=== PATIENT | male | born 1990 | race African-American/Black ===

== ENCOUNTER 2023-04-21 12:29 | Inpatient (IN) | payer MEDICAID ==
[~2023-04-21] VITALS: Ht 180.3 cm; Wt 96.3 kg
[2023-04-21] MEDS ORDERED: OLANZapine 5 MG RAPDIS TABLET PO PRN (13:30)
[2023-04-21] MEDS ORDERED: ZOLPIDEM TARTRATE 10 MG TABLET PO PRN (13:30)
[2023-04-21] MEDS ORDERED: DiphenhydrAMINE HCL 50 MG/ML VIAL IM ONE (15:45)
[2023-04-21] MEDS ORDERED: LORazepam 2 MG/ML VIAL IM ONE (15:45)
[2023-04-21] MEDS ORDERED: HALOPERIDOL LACTATE 5 MG/ML VIAL IM ONE (15:45)
[2023-04-21 16:24] LABS: EOSINOPHILS % (AUTO) 0.3 % (1.0-6.0); HEMATOCRIT 43.4 % (41-53); HEMOGLOBIN 15.1 g/dL (13.5-17.5); LYMPHOCYTES # (AUTO) 1.7 K/uL (1.0-4.8); LYMPHOCYTES % (AUTO) 24.6 % (22.0-44.0); MEAN CORPUSCULAR HEMOGLOBIN 28.8 pg (26.0-34.0); MEAN CORPUSCULAR HGB CONC 34.8 G/dL (31.0-37.0); MEAN CORPUSCULAR VOLUME 83 fL (80-100); MONOCYTES # (AUTO) 0.5 K/uL (0.1-1.0); MONOCYTES % (AUTO) 6.6 % (2.0-9.0); NEUTROPHILS # (AUTO) 4.8 K/uL (1.8-7.7); NEUTROPHILS % (AUTO) 67.5 % (40.0-70.0); PLATELET COUNT (AUTO) 251 K/uL (150-450); RED BLOOD CELL COUNT(AUTO) 5.23 MIL/uL (4.50-5.90); RED CELL DISTRIBUTION WIDTH 12.8 % (11.5-14.5)
[2023-04-21 16:35] LABS: ANION GAP 13 mmol/L (8-16); CALCIUM, TOTAL 9.1 mg/dL (8.8-10.5); CARBON DIOXIDE 26 mmol/L (22-29); CHLORIDE 100 mmol/L (98-107); CREATININE 1.02 mg/dL (0.60-1.30); GLOMERULAR FILTR. RATE CALC > 60 mL/min (>60); GLUCOSE,RANDOM 99 mg/dL (70-110); SODIUM SERUM 139 mmol/L (136-145)
[2023-04-21 16:40] LABS: ALANINE AMINOTRANSFERASE 26 U/L (12-78); ALBUMIN 3.9 g/dL (3.4-5.0); ALKALINE PHOSPHATASE 82 U/L (46-116); ASPARTATE AMINOTRANSFERASE 15 U/L (15-37); BILIRUBIN,TOTAL 0.9 mg/dL (0.1-1.0); TOTAL PROTEIN, SERUM 7.8 g/dL (6.4-8.2)
[2023-04-21 17:03] LABS: COVID AG,FIA SOURCE NASOPHARYNGEAL
[2023-04-21] MEDS ORDERED: POTASSIUM CHLORIDE 10% 40 MEQ/30 ML LIQUID UDCUP PO ONE (17:45)
[2023-04-21] MEDS ORDERED: MAGNESIUM HYDROXIDE SUSPENSION 30 ML UDCUP PO PRN (21:00)
[2023-04-21] MEDS ORDERED: HydrOXYzine PAMOATE 50 MG CAPSULE PO PRN (21:00)
[2023-04-21] MEDS ORDERED: MAG HYDROX/AL HYDROX/SIMETH ES 30 ML SUSPENSION UDCUP PO PRN (21:00)
[2023-04-21] MEDS ORDERED: LOPERAMIDE HCL 2 MG CAPSULE PO PRN (21:00)
[2023-04-21] MEDS ORDERED: GuaiFENesin/D-METHORPHAN [SUGAR-FREE] 200-20MG/10 ML SYRUP UDCUP PO PRN (21:00)
[2023-04-21] MEDS ORDERED: ACETAMINOPHEN 325 MG TABLET PO PRN (21:00)
[2023-04-21] MEDS ORDERED: OLANZapine 5 MG RAPDIS TABLET PO SCH (21:00)
[2023-04-21] MEDS ORDERED: PROMETHAZINE HCL 25 MG TABLET PO PRN (21:00)
[2023-04-21] MEDS ORDERED: TUBERCULIN, PURIFIED PROTEIN DERIVATIVE 5 TU/0.1 ML SYRINGE ID ONE (21:00)
[2023-04-21 22:15] VITALS: BP 109/70; PULSE 104; RESP 18; TEMP 98.1; O2SAT 96
[2023-04-21] MEDS: MELATONIN 5 MG TABLET PO SCH (22:27)
[2023-04-22 08:14] VITALS: RESP 17
[2023-04-22] MEDS: NALTREXONE HCL 50 MG TABLET PO SCH (08:15)
[2023-04-22] MEDS: OMEGA-3/DHA/EPA/FISH OIL 1,000 MG CAPSULE PO SCH (08:15)
[2023-04-22] MEDS: VARENICLINE TARTRATE 0.5 MG TABLET PO SCH (08:15)
[2023-04-22] MEDS: MULTIVITAMINS WITH MINERALS, THERAPEUTIC TABLET PO SCH (08:15)
[2023-04-22] MEDS: FLUoxetine HCL 20 MG CAPSULE PO SCH (08:15)
[2023-04-22] MEDS: THIAMINE 100 MG TABLET PO SCH ×2 (08:15→16:19)
[2023-04-22] MEDS: FOLIC ACID 1 MG TABLET PO SCH (08:15)
[2023-04-22] MEDS ORDERED: ARIPiprazole ER SUSPENSION 400 MG PRE-FILLED DUAL CHAMBER SYRINGE IM ONE (08:45)
[2023-04-22] MEDS ORDERED: ARIPiprazole ER SUSPENSION 400 MG PRE-FILLED DUAL CHAMBER SYRINGE IM SCH (09:00)
[2023-04-22] MEDS ORDERED: POTASSIUM CHLORIDE 20 MEQ ER TABLET PO ONE (11:15)
[2023-04-22] MEDS: MELATONIN 5 MG TABLET PO SCH (20:16)
[2023-04-22] MEDS: ARIPiprazole 15 MG TABLET PO SCH (20:16)
[2023-04-22 20:17] VITALS: BP 110/62; PULSE 100; RESP 18; TEMP 98; O2SAT 97
[2023-04-22] MEDS ORDERED: POTASSIUM CHLORIDE 10% 40 MEQ/30 ML LIQUID UDCUP PO ONE (21:00)
[2023-04-23 08:05] LABS: ANION GAP 6 mmol/L (8-16); CALCIUM, TOTAL 8.7 mg/dL (8.8-10.5); CARBON DIOXIDE 30 mmol/L (22-29); CHLORIDE 105 mmol/L (98-107); CREATININE 0.94 mg/dL (0.60-1.30); GLOMERULAR FILTR. RATE CALC > 60 mL/min (>60); GLUCOSE,RANDOM 87 mg/dL (70-110); POTASSIUM 3.9 mmol/L (3.5-5.1); SODIUM SERUM 141 mmol/L (136-145)
[2023-04-23] MEDS: FOLIC ACID 1 MG TABLET PO SCH (08:08)
[2023-04-23] MEDS: NALTREXONE HCL 50 MG TABLET PO SCH (08:08)
[2023-04-23] MEDS: OMEGA-3/DHA/EPA/FISH OIL 1,000 MG CAPSULE PO SCH (08:08)
[2023-04-23] MEDS: FLUoxetine HCL 20 MG CAPSULE PO SCH (08:08)
[2023-04-23] MEDS: THIAMINE 100 MG TABLET PO SCH ×2 (08:08→16:16)
[2023-04-23] MEDS: MULTIVITAMINS WITH MINERALS, THERAPEUTIC TABLET PO SCH (08:08)
[2023-04-23] MEDS: VARENICLINE TARTRATE 0.5 MG TABLET PO SCH (08:10)
[2023-04-23 08:11] VITALS: BP 120/63; PULSE 78; RESP 18; TEMP 97.2; O2SAT 98
[2023-04-23] MEDS: ARIPiprazole 15 MG TABLET PO SCH (20:08)
[2023-04-23] MEDS: MELATONIN 5 MG TABLET PO SCH (20:08)
[2023-04-23] MEDS: DIVALPROEX SODIUM 500 MG ER TABLET PO SCH (20:11)
[2023-04-23 20:12] VITALS: BP 136/79; PULSE 90; RESP 18; TEMP 98.2; O2SAT 98
[2023-04-24] MEDS: MULTIVITAMINS WITH MINERALS, THERAPEUTIC TABLET PO SCH (08:09)
[2023-04-24] MEDS: VARENICLINE TARTRATE 0.5 MG TABLET PO SCH (08:09)
[2023-04-24] MEDS: FOLIC ACID 1 MG TABLET PO SCH (08:09)
[2023-04-24] MEDS: NALTREXONE HCL 50 MG TABLET PO SCH (08:09)
[2023-04-24] MEDS: OMEGA-3/DHA/EPA/FISH OIL 1,000 MG CAPSULE PO SCH (08:09)
[2023-04-24] MEDS: THIAMINE 100 MG TABLET PO SCH ×2 (08:09→17:21)
[2023-04-24 08:22] VITALS: BP 106/82; PULSE 83; RESP 16; TEMP 98.1; O2SAT 99
[2023-04-24] MEDS: FLUoxetine HCL 20 MG CAPSULE PO SCH (09:14)
[2023-04-24] MEDS: MUPIROCIN CALCIUM 2% 22 GM OINTMENT NASAL SCH (17:22)
[2023-04-24 20:23] VITALS: BP 125/77; PULSE 92; RESP 18; TEMP 98.2; O2SAT 97
[2023-04-24] MEDS: DIVALPROEX SODIUM 500 MG ER TABLET PO SCH (20:36)
[2023-04-24] MEDS: MELATONIN 5 MG TABLET PO SCH (20:36)
[2023-04-24] MEDS: ARIPiprazole 15 MG TABLET PO SCH (20:36)
[2023-04-25] MEDS: FOLIC ACID 1 MG TABLET PO SCH (08:21)
[2023-04-25] MEDS: FLUoxetine HCL 20 MG CAPSULE PO SCH (08:21)
[2023-04-25] MEDS: NALTREXONE HCL 50 MG TABLET PO SCH (08:21)
[2023-04-25] MEDS: MULTIVITAMINS WITH MINERALS, THERAPEUTIC TABLET PO SCH (08:21)
[2023-04-25] MEDS: OMEGA-3/DHA/EPA/FISH OIL 1,000 MG CAPSULE PO SCH (08:21)
[2023-04-25] MEDS: VARENICLINE TARTRATE 0.5 MG TABLET PO SCH (08:21)
[2023-04-25] MEDS: THIAMINE 100 MG TABLET PO SCH ×2 (08:21→16:44)
[2023-04-25] MEDS: MUPIROCIN CALCIUM 2% 22 GM OINTMENT NASAL SCH ×2 (08:23→16:45)
[2023-04-25 08:26] VITALS: BP 125/73; PULSE 91; RESP 18; TEMP 97.1; O2SAT 97
[2023-04-25] MEDS: DIVALPROEX SODIUM 500 MG ER TABLET PO SCH (20:12)
[2023-04-25] MEDS: MELATONIN 5 MG TABLET PO SCH (20:12)
[2023-04-25] MEDS: ARIPiprazole 15 MG TABLET PO SCH (20:12)
[2023-04-25 20:37] VITALS: BP 121/71; PULSE 73; RESP 17; TEMP 97.9; O2SAT 94
[2023-04-26] MEDS: FOLIC ACID 1 MG TABLET PO SCH (08:14)
[2023-04-26] MEDS: OMEGA-3/DHA/EPA/FISH OIL 1,000 MG CAPSULE PO SCH (08:14)
[2023-04-26] MEDS: THIAMINE 100 MG TABLET PO SCH ×2 (08:15→16:22)
[2023-04-26] MEDS: NALTREXONE HCL 50 MG TABLET PO SCH (08:15)
[2023-04-26] MEDS: FLUoxetine HCL 20 MG CAPSULE PO SCH (08:15)
[2023-04-26] MEDS: MULTIVITAMINS WITH MINERALS, THERAPEUTIC TABLET PO SCH (08:15)
[2023-04-26] MEDS: MUPIROCIN CALCIUM 2% 22 GM OINTMENT NASAL SCH ×2 (08:16→16:37)
[2023-04-26] MEDS: VARENICLINE TARTRATE 0.5 MG TABLET PO SCH (08:16)
[2023-04-26 08:41] VITALS: BP 117/72; PULSE 88; RESP 20; TEMP 97.8; O2SAT 99
[2023-04-26] MEDS ORDERED: VARE0.5T7 PO (11:14)
[2023-04-26] MEDS ORDERED: ARIP15TA2 PO (11:15)
[2023-04-26] MEDS ORDERED: FLUO-177 PO (11:15)
[2023-04-26] MEDS ORDERED: DIVA500T53 PO (11:15)
[2023-04-26] MEDS ORDERED: NALT50TA6 PO (11:15)
[2023-04-26 20:14] VITALS: BP 140/63; PULSE 75; RESP 18; TEMP 98; O2SAT 98
[2023-04-26] MEDS: MELATONIN 5 MG TABLET PO SCH (20:54)
[2023-04-26] MEDS: ARIPiprazole 15 MG TABLET PO SCH (20:54)
[2023-04-26] MEDS: DIVALPROEX SODIUM 500 MG ER TABLET PO SCH (20:54)
[2023-04-27] MEDS: NALTREXONE HCL 50 MG TABLET PO SCH (08:10)
[2023-04-27] MEDS: FOLIC ACID 1 MG TABLET PO SCH (08:10)
[2023-04-27] MEDS: OMEGA-3/DHA/EPA/FISH OIL 1,000 MG CAPSULE PO SCH (08:10)
[2023-04-27] MEDS: VARENICLINE TARTRATE 0.5 MG TABLET PO SCH (08:10)
[2023-04-27] MEDS: MULTIVITAMINS WITH MINERALS, THERAPEUTIC TABLET PO SCH (08:10)
[2023-04-27] MEDS: THIAMINE 100 MG TABLET PO SCH ×2 (08:10→16:57)
[2023-04-27] MEDS: MUPIROCIN CALCIUM 2% 22 GM OINTMENT NASAL SCH ×2 (08:11→16:57)
[2023-04-27 08:13] VITALS: BP 130/60; PULSE 82; RESP 18; TEMP 97; O2SAT 96
[2023-04-27] MEDS: FLUoxetine HCL 20 MG CAPSULE PO SCH (08:13)
[2023-04-27] MEDS: LORazepam 2 MG TABLET PO PRN ×2 (13:18→20:02)
[2023-04-27] MEDS ORDERED: NICOTINE 21 MG/24 HOUR PATCH TD PRN (18:30)
[2023-04-27] MEDS: ARIPiprazole 15 MG TABLET PO SCH (20:02)
[2023-04-27] MEDS: DIVALPROEX SODIUM 500 MG ER TABLET PO SCH (20:02)
[2023-04-27] MEDS: MELATONIN 5 MG TABLET PO SCH (20:02)
[2023-04-27 20:03] VITALS: BP 102/60; PULSE 88; RESP 18; TEMP 97.5; O2SAT 97
[2023-04-28] MEDS: FOLIC ACID 1 MG TABLET PO SCH (08:19)
[2023-04-28] MEDS: MULTIVITAMINS WITH MINERALS, THERAPEUTIC TABLET PO SCH (08:19)
[2023-04-28] MEDS: OMEGA-3/DHA/EPA/FISH OIL 1,000 MG CAPSULE PO SCH (08:19)
[2023-04-28] MEDS: MUPIROCIN CALCIUM 2% 22 GM OINTMENT NASAL SCH (08:19)
[2023-04-28] MEDS: VARENICLINE TARTRATE 0.5 MG TABLET PO SCH (08:19)
[2023-04-28] MEDS: FLUoxetine HCL 20 MG CAPSULE PO SCH (08:19)
[2023-04-28] MEDS: THIAMINE 100 MG TABLET PO SCH (08:19)
[2023-04-28] MEDS: NALTREXONE HCL 50 MG TABLET PO SCH (08:23)
[2023-04-28] MEDS ORDERED: FLUO20CA36 PO (08:24)
[2023-04-28] MEDS ORDERED: MELA5TAB40 PO (08:24)
[2023-04-28] MEDS ORDERED: OMEG-135 PO (08:24)
[2023-04-28] MEDS ORDERED: ARIP15TA27 PO (08:24)
[2023-04-28] MEDS ORDERED: NALT50TA PO (08:24)
[2023-04-28] MEDS ORDERED: VARE0.5T7 PO (08:24)
[2023-04-28] MEDS ORDERED: ARIP400S3 IM (08:24)
[2023-04-28] MEDS ORDERED: DIVA500T69 PO (08:24)
[2023-04-28 09:17] VITALS: BP 136/80; PULSE 125; RESP 18; TEMP 97.9; O2SAT 97
[2023-05-20] MEDS ORDERED: ARIPiprazole ER SUSPENSION 400 MG PRE-FILLED DUAL CHAMBER SYRINGE IM SCH (09:00)
== END 2023-04-28 10:00 | disposition home or self-care (01) | DRG 750 ==
LOC: EMS 12:32 → B3A 18:55 → B2S 04-27 14:37
PROVIDERS: ADMIT Psychiatry & Neurology Psychiatry; ATTEND Psychiatry & Neurology Psychiatry
DX: F20.0 Paranoid schizophrenia (principal); Z91.148 Patient's other noncompliance with medication regimen for other reason; E87.6 Hypokalemia; Z20.822 Contact with and (suspected) exposure to COVID-19; F19.10 Other psychoactive substance abuse, uncomplicated; F17.200 Nicotine dependence, unspecified, uncomplicated; J44.9 Chronic obstructive pulmonary disease, unspecified; F41.9 Anxiety disorder, unspecified
CPT/HCPCS: 80048; 80053; 85025; 87081; 99285; G0480; J0401; J1200; J1630; J2060; Q9967

== ENCOUNTER 2023-04-29 03:15 | Emergency (ER) | payer MEDICAID ==
[~2023-04-29] VITALS: Ht 180.3 cm; Wt 98.6 kg
[~2023-04-29 03:15] MED LIST: ARIP15TA2 PO; ARIP15TA27 PO; ARIP400S3 IM; DIVA500T53 PO; DIVA500T69 PO; FLUO-177 PO; FLUO20CA36 PO; MELA5TAB40 PO; NALT50TA PO; NALT50TA6 PO; OMEG-135 PO; VARE0.5T7 PO
[2023-04-29 03:22] VITALS: TEMP 98.3
[2023-04-29] MEDS ORDERED: LORazepam 1 MG TABLET PO ONE (05:30)
[2023-04-29] MEDS ORDERED: ARIPiprazole 15 MG TABLET PO ONE (05:30)
[2023-04-29 06:23] VITALS: BP 137/87; PULSE 98; RESP 19
== END 2023-04-29 06:32 | disposition home or self-care (01) ==
LOC: EMS 03:16
DX: F41.9 Anxiety disorder, unspecified (principal); F31.9 Bipolar disorder, unspecified; F20.9 Schizophrenia, unspecified; F90.9 Attention-deficit hyperactivity disorder, unspecified type; F17.210 Nicotine dependence, cigarettes, uncomplicated; F15.90 Other stimulant use, unspecified, uncomplicated; F12.90 Cannabis use, unspecified, uncomplicated; F14.90 Cocaine use, unspecified, uncomplicated; F11.90 Opioid use, unspecified, uncomplicated
CPT/HCPCS: 99283

== ENCOUNTER 2023-11-16 17:46 | Emergency (ER) | payer MEDICAID, OTHER ==
[~2023-11-16] VITALS: Ht 177.8 cm; Wt 100.0 kg
[~2023-11-16 17:46] MED LIST changes: +NALT50TA33 PO; -NALT50TA6 PO
[2023-11-16 17:54] VITALS: TEMP 99.3
[2023-11-16] MEDS: ACETAMINOPHEN 500 MG TABLET PO ONE (18:27)
[2023-11-16] MEDS: DIPHENOXYLATE/ATROP 2.5-0.025 MG TABLET PO ONE (18:28)
[2023-11-16 18:40] LABS: BASOPHILS % (AUTO) 0.9 % (0.0-2.0); EOSINOPHILS % (AUTO) 1.8 % (1.0-6.0); HEMATOCRIT 43.3 % (41-53); HEMOGLOBIN 14.9 g/dL (13.5-17.5); LYMPHOCYTES # (AUTO) 1.6 K/uL (1.0-4.8); LYMPHOCYTES % (AUTO) 27.4 % (22.0-44.0); MEAN CORPUSCULAR HEMOGLOBIN 28.7 pg (26.0-34.0); MEAN CORPUSCULAR HGB CONC 34.4 G/dL (31.0-37.0); MEAN CORPUSCULAR VOLUME 83 fL (80-100); MONOCYTES # (AUTO) 0.5 K/uL (0.1-1.0); MONOCYTES % (AUTO) 9.2 % (2.0-9.0); NEUTROPHILS # (AUTO) 3.6 K/uL (1.8-7.7); NEUTROPHILS % (AUTO) 60.7 % (40.0-70.0); PLATELET COUNT (AUTO) 227 K/uL (150-450); RED BLOOD CELL COUNT(AUTO) 5.19 MIL/uL (4.50-5.90); RED CELL DISTRIBUTION WIDTH 12.7 % (11.5-14.5)
[2023-11-16 18:50] LABS: ANION GAP 9 mmol/L (8-16); CALCIUM, TOTAL 9.4 mg/dL (8.8-10.5); CARBON DIOXIDE 26 mmol/L (22-29); CHLORIDE 101 mmol/L (98-107); CREATININE 1.01 mg/dL (0.60-1.30); GLOMERULAR FILTR. RATE CALC > 60 mL/min (>60); GLUCOSE,RANDOM 85 mg/dL (70-110); POTASSIUM 3.7 mmol/L (3.5-5.1); SODIUM SERUM 136 mmol/L (136-145); UREA NITROGEN, BLOOD 16 mg/dL (7-18)
[2023-11-16 18:54] LABS: ALANINE AMINOTRANSFERASE 41 U/L (12-78); ALBUMIN 3.6 g/dL (3.4-5.0); ALKALINE PHOSPHATASE 76 U/L (46-116); ASPARTATE AMINOTRANSFERASE 13 U/L (15-37); BILIRUBIN,TOTAL 0.5 mg/dL (0.1-1.0); TOTAL PROTEIN, SERUM 7.5 g/dL (6.4-8.2)
[2023-11-16] MEDS ORDERED: DIPH-1130 PO (19:29)
[2023-11-16] MEDS ORDERED: ACET-66 PO (19:29)
[2023-11-16 19:55] VITALS: BP 140/88; PULSE 70; RESP 18
[2023-11-18 08:06] LABS: HIV 1-2 SCREEN 4TH GEN W/RFLX Non Reactive (Non Reactive)
== END 2023-11-16 20:29 | disposition home or self-care (01) ==
LOC: EMS 17:56
DX: K52.9 Noninfective gastroenteritis and colitis, unspecified (principal); F41.9 Anxiety disorder, unspecified; F31.9 Bipolar disorder, unspecified; F20.9 Schizophrenia, unspecified; F17.210 Nicotine dependence, cigarettes, uncomplicated; F12.90 Cannabis use, unspecified, uncomplicated; F14.90 Cocaine use, unspecified, uncomplicated; F15.90 Other stimulant use, unspecified, uncomplicated; F11.90 Opioid use, unspecified, uncomplicated
CPT/HCPCS: 80053; 85025; 87389; 99283

== ENCOUNTER 2023-11-27 11:56 | Inpatient (IN) | payer MEDICAID, OTHER ==
[~2023-11-27] VITALS: Ht 180.3 cm; Wt 103.5 kg
[~2023-11-27 11:56] MED LIST changes: +ACET-66 PO; -ARIP15TA2 PO; +DIPH-1130 PO; -DIVA500T53 PO; -FLUO-177 PO; -NALT50TA33 PO
[2023-11-27 13:06] LABS: BASOPHILS % (AUTO) 0.4 % (0.0-2.0); EOSINOPHILS % (AUTO) 1.8 % (1.0-6.0); HEMATOCRIT 48.9 % (41-53); HEMOGLOBIN 16.8 g/dL (13.5-17.5); LYMPHOCYTES # (AUTO) 1.8 K/uL (1.0-4.8); MEAN CORPUSCULAR HGB CONC 34.4 G/dL (31.0-37.0); MEAN CORPUSCULAR VOLUME 84 fL (80-100); MONOCYTES # (AUTO) 0.7 K/uL (0.1-1.0); MONOCYTES % (AUTO) 10.5 % (2.0-9.0); NEUTROPHILS # (AUTO) 4.1 K/uL (1.8-7.7); NEUTROPHILS % (AUTO) 60.3 % (40.0-70.0); PLATELET COUNT (AUTO) 269 K/uL (150-450); RED BLOOD CELL COUNT(AUTO) 5.81 MIL/uL (4.50-5.90); RED CELL DISTRIBUTION WIDTH 12.9 % (11.5-14.5); WHITE BLOOD COUNT (AUTO) 6.8 K/uL (4.5-11.0)
[2023-11-27 13:18] LABS: ANION GAP 10 mmol/L (8-16); CALCIUM, TOTAL 9.9 mg/dL (8.8-10.5); CARBON DIOXIDE 28 mmol/L (22-29); CHLORIDE 102 mmol/L (98-107); CREATININE 1.47 mg/dL (0.60-1.30); GLOMERULAR FILTR. RATE CALC > 60 mL/min (>60); GLUCOSE,RANDOM 62 mg/dL (70-110); POTASSIUM 3.1 mmol/L (3.5-5.1); SODIUM SERUM 140 mmol/L (136-145); UREA NITROGEN, BLOOD 30 mg/dL (7-18)
[2023-11-27 13:20] LABS: ALCOHOL, BLOOD (SERUM) < 3 mg/dL (0-10)
[2023-11-27 13:20] LABS: COVID AG,FIA SOURCE NASAL SWAB
[2023-11-27 13:27] LABS: ALANINE AMINOTRANSFERASE 28 U/L (12-78); ALBUMIN 3.9 g/dL (3.4-5.0); ALKALINE PHOSPHATASE 80 U/L (46-116); ASPARTATE AMINOTRANSFERASE 12 U/L (15-37); BILIRUBIN,TOTAL 0.9 mg/dL (0.1-1.0); TOTAL PROTEIN, SERUM 8.1 g/dL (6.4-8.2)
[2023-11-27 13:53] LABS: SARS-COV2 (COVID) ANTIGEN,FIA Negative (Negative)
[2023-11-27] MEDS: POTASSIUM CHLORIDE 20 MEQ ER TABLET PO ONE (14:24)
[2023-11-28 04:32] VITALS: BP 108/77; PULSE 100; RESP 18; TEMP 98.5
[2023-11-28 04:41] VITALS: BP 108/77; PULSE 100; RESP 18; TEMP 98.5; O2SAT 100
[2023-11-28 08:48] VITALS: BP 104/60; PULSE 71; RESP 17; TEMP 97.4; O2SAT 97
[2023-11-28] MEDS: FLUoxetine HCL 20 MG CAPSULE PO SCH (09:00)
[2023-11-28] MEDS: NALTREXONE HCL 50 MG TABLET PO SCH (09:00)
[2023-11-28] MEDS: OMEGA-3/DHA/EPA/FISH OIL 1,000 MG CAPSULE PO SCH (09:00)
[2023-11-28] MEDS: VARENICLINE TARTRATE 0.5 MG TABLET PO SCH (09:00)
[2023-11-28] MEDS ORDERED: PETROLATUM,WHITE 28 GM JELLY TP PRN (12:15)
[2023-11-28] MEDS ORDERED: MAG HYDROX/ALUMINUM HYD/SIMETH ES 30 ML SUSPENSION UDCUP PO PRN (12:15)
[2023-11-28] MEDS ORDERED: ACETAMINOPHEN 325 MG TABLET PO PRN (12:15)
[2023-11-28] MEDS ORDERED: DOCUSATE SODIUM 100 MG CAPSULE PO PRN (12:15)
[2023-11-28] MEDS ORDERED: IBUPROFEN 400 MG TABLET PO PRN (12:15)
[2023-11-28] MEDS ORDERED: GuaiFENesin/D-METHORPHAN [SUGAR-FREE] 200-20MG/10 ML SYRUP UDCUP PO PRN (12:15)
[2023-11-28] MEDS ORDERED: ONDANSETRON HCL 4 MG TABLET PO PRN (12:15)
[2023-11-28] MEDS ORDERED: CloNIDine HCL 0.1 MG TABLET PO PRN (12:15)
[2023-11-28] MEDS ORDERED: MAGNESIUM HYDROXIDE SUSPENSION 30 ML UDCUP PO PRN (12:15)
[2023-11-28] MEDS ORDERED: NICOTINE 14 MG/24 HOUR PATCH TD PRN (12:15)
[2023-11-28] MEDS ORDERED: ALBUTEROL SULFATE HFA 90 MCG/PUFF 8 GM INHALER IH PRN (12:15)
[2023-11-28] MEDS ORDERED: LOPERAMIDE HCL 2 MG CAPSULE PO PRN (12:15)
[2023-11-28] MEDS: ARIPiprazole 15 MG TABLET PO SCH (20:44)
[2023-11-28] MEDS: MELATONIN 5 MG TABLET PO SCH (20:45)
[2023-11-28] MEDS: DIVALPROEX SODIUM 500 MG DR TABLET PO SCH (20:45)
[2023-11-29] MEDS: INFLUENZA VIRUS VACCINE QVS 2023-24 (6MO+)/PF 60 MCG/0.5 ML SYRINGE IM. ONE (06:00)
[2023-11-29] MEDS: PNEUMOCOCCAL VACCINE POLYVALENT 0.5 ML SYRINGE [PPSV23] IM. ONE (06:00)
[2023-11-29 08:10] VITALS: BP 126/66; PULSE 107; RESP 18; TEMP 98; O2SAT 98
[2023-11-29] MEDS: HALOPERIDOL 5 MG TABLET PO PRN (08:12)
[2023-11-29] MEDS: LORazepam 2 MG TABLET PO PRN (08:12)
[2023-11-29] MEDS: RisperiDONE 3 MG TABLET PO SCH (16:04)
[2023-11-29 20:03] VITALS: BP 109/72; PULSE 80; RESP 18; TEMP 96.5; O2SAT 100
[2023-11-30 14:11] VITALS: BP 128/86; PULSE 84; RESP 19; TEMP 97.2; O2SAT 99
[2023-11-30 20:17] VITALS: BP 122/65; PULSE 84; RESP 17; TEMP 97.1; O2SAT 97
[2023-12-01 08:18] VITALS: BP 141/71; PULSE 100; RESP 18; TEMP 97.5; O2SAT 98
[2023-12-01 22:06] VITALS: RESP 18
[2023-12-02 20:45] VITALS: BP 117/64; PULSE 80; RESP 18; TEMP 98; O2SAT 98
[2023-12-03 08:18] VITALS: BP 103/64; PULSE 85; RESP 18; TEMP 97.6; O2SAT 98
[2023-12-03] MEDS: MUPIROCIN CALCIUM 2% 22 GM OINTMENT NASAL SCH (09:00)
[2023-12-03 21:16] VITALS: BP 114/65; PULSE 78; RESP 19; TEMP 97.8; O2SAT 97
[2023-12-04 08:10] VITALS: BP 126/63; PULSE 93; RESP 17; TEMP 97.6; O2SAT 97
[2023-12-04] MEDS: ZOLPIDEM TARTRATE 10 MG TABLET PO PRN (20:17)
[2023-12-04 20:20] VITALS: BP 115/61; PULSE 86; TEMP 96.6; O2SAT 97
[2023-12-05 08:54] VITALS: RESP 18
[2023-12-05] MEDS ORDERED: HydrOXYzine PAMOATE 50 MG CAPSULE PO PRN (17:45)
[2023-12-05 20:09] VITALS: BP 115/72; PULSE 92; RESP 15; TEMP 98.3; O2SAT 97
[2023-12-06 08:00] VITALS: BP 117/81; PULSE 85; RESP 16; TEMP 98.5; O2SAT 95
[2023-12-06] MEDS ORDERED: MELA5TAB40 PO (12:18)
[2023-12-06] MEDS ORDERED: NALT50TA33 PO (12:18)
[2023-12-06] MEDS ORDERED: DIVA-112 PO (12:18)
[2023-12-06] MEDS ORDERED: FLUO20CA36 PO (12:18)
[2023-12-06] MEDS ORDERED: NICO-703 TD (12:19)
[2023-12-06] MEDS ORDERED: RISP3TAB35 PO (12:19)
== END 2023-12-06 16:00 | disposition home or self-care (01) | DRG 750 ==
LOC: EMS 11:58 → B3A 11-28 00:30
PROVIDERS: ADMIT Psychiatry & Neurology Psychiatry; ATTEND Psychiatry & Neurology Psychiatry
PROC: GZHZZZZ Group Psychotherapy (ICD-10-PCS; principal; 2023-12-02)
PROC: GZ51ZZZ Individual Psychotherapy, Behavioral (ICD-10-PCS; 2023-12-02)
DX: F25.9 Schizoaffective disorder, unspecified (principal); N17.9 Acute kidney failure, unspecified; E78.5 Hyperlipidemia, unspecified; E87.6 Hypokalemia; F31.9 Bipolar disorder, unspecified; R45.851 Suicidal ideations; F15.90 Other stimulant use, unspecified, uncomplicated; F41.9 Anxiety disorder, unspecified; F12.90 Cannabis use, unspecified, uncomplicated; F11.90 Opioid use, unspecified, uncomplicated; F14.90 Cocaine use, unspecified, uncomplicated; Z20.822 Contact with and (suspected) exposure to COVID-19; Z87.891 Personal history of nicotine dependence; Z91.199 Patient's noncompliance with other medical treatment and regimen due to unspecified reason
CPT/HCPCS: 80053; 80164; 80178; 85025; 87081; 99285; G0480; Q9967

== ENCOUNTER 2024-02-21 18:24 | Emergency (ER) | payer MEDICAID, OTHER ==
[~2024-02-21] VITALS: Ht 180.3 cm; Wt 93.2 kg
[~2024-02-21 18:24] MED LIST changes: -ACET-66 PO; -ARIP15TA27 PO; -ARIP400S3 IM; -DIPH-1130 PO; +DIVA-112 PO; -DIVA500T69 PO; -NALT50TA PO; +NALT50TA33 PO; +NICO-703 TD; -OMEG-135 PO; +RISP3TAB35 PO; -VARE0.5T7 PO
[2024-02-21 18:31] VITALS: TEMP 98
[2024-02-21 19:00] LABS: BASOPHILS % (AUTO) 0.5 % (0.0-2.0); EOSINOPHILS % (AUTO) 0.7 % (1.0-6.0); HEMATOCRIT 41.8 % (41-53); HEMOGLOBIN 14.4 g/dL (13.5-17.5); LYMPHOCYTES # (AUTO) 1.5 K/uL (1.0-4.8); LYMPHOCYTES % (AUTO) 14.8 % (22.0-44.0); MEAN CORPUSCULAR HEMOGLOBIN 29.2 pg (26.0-34.0); MEAN CORPUSCULAR HGB CONC 34.4 G/dL (31.0-37.0); MEAN CORPUSCULAR VOLUME 85 fL (80-100); MONOCYTES # (AUTO) 0.8 K/uL (0.1-1.0); NEUTROPHILS # (AUTO) 7.7 K/uL (1.8-7.7); PLATELET COUNT (AUTO) 185 K/uL (150-450); RED BLOOD CELL COUNT(AUTO) 4.92 MIL/uL (4.50-5.90); RED CELL DISTRIBUTION WIDTH 13.6 % (11.5-14.5); WHITE BLOOD COUNT (AUTO) 10.2 K/uL (4.5-11.0)
[2024-02-21 19:10] LABS: ANION GAP 10 mmol/L (8-16); CALCIUM, TOTAL 8.6 mg/dL (8.8-10.5); CARBON DIOXIDE 28 mmol/L (22-29); CHLORIDE 103 mmol/L (98-107); CREATININE 1.17 mg/dL (0.60-1.30); GLOMERULAR FILTR. RATE CALC > 60 mL/min (>60); GLUCOSE,RANDOM 87 mg/dL (70-110); SODIUM SERUM 141 mmol/L (136-145); UREA NITROGEN, BLOOD 17 mg/dL (7-18)
[2024-02-21 19:14] LABS: ALCOHOL, BLOOD (SERUM) < 3 mg/dL (0-10)
[2024-02-21] MEDS: ARIPiprazole 5 MG TABLET PO ONE (23:27)
[2024-02-21] MEDS: RisperiDONE 3 MG TABLET PO ONE (23:28)
[2024-02-21] MEDS ORDERED: RisperiDONE 1 MG TABLET PO ONE (23:30)
[2024-02-21] MEDS: POTASSIUM CHLORIDE 20 MEQ ER TABLET PO ONE (23:44)
[2024-02-21 23:59] VITALS: BP 148/79; PULSE 109; RESP 18
[2024-02-22 00:01] LABS: ALCOHOL, URINE DRUG SCREEN NEGATIVE (NEGATIVE); AMPHET/METH SCREEN,URINE POSITIVE (NEGATIVE); BARBITURATE SCREEN, URINE NEGATIVE (NEGATIVE); BENZODIAZEPINES SCREEN,URINE NEGATIVE (NEGATIVE); CANNABINOID SCREEN,URINE POSITIVE (NEGATIVE); COCAINE SCREEN,URINE NEGATIVE (NEGATIVE); METHADONE SCREEN, URINE NEGATIVE (NEGATIVE); OPIATE SCREEN,URINE NEGATIVE (NEGATIVE); PHENCYCLIDINE SCREEN,URINE NEGATIVE (NEGATIVE)
[2024-02-22] MEDS ORDERED: SULF-261 PO (02:51)
== END 2024-02-22 00:02 | disposition left against medical advice (07) ==
LOC: EMS 18:29
DX: F20.0 Paranoid schizophrenia (principal); E87.6 Hypokalemia; F32.9 Major depressive disorder, single episode, unspecified; F41.9 Anxiety disorder, unspecified; F17.210 Nicotine dependence, cigarettes, uncomplicated; F15.90 Other stimulant use, unspecified, uncomplicated; F14.90 Cocaine use, unspecified, uncomplicated; F12.90 Cannabis use, unspecified, uncomplicated
CPT/HCPCS: 99284; 80048; 85025; 36415; 80307; G0480; 99283

== ENCOUNTER 2024-02-22 00:34 | Emergency (ER) | payer OTHER ==
[~2024-02-22] VITALS: Ht 175.3 cm; Wt 109.0 kg
[2024-02-22 00:51] VITALS: TEMP 98
[2024-02-22 02:23] LABS: APPEARANCE,URINE CLEAR (CLEAR); BILIRUBIN,URINE NEGATIVE (NEGATIVE); COLOR,URINE YELLOW (YELLOW); GLUCOSE, URINE (UA) NEGATIVE (NEGATIVE); LEUKOCYTE ESTERASE ,URINE NEGATIVE (NEGATIVE); NITRATE,URINE NEGATIVE (NEGATIVE); OCCULT BLOOD,URINE NEGATIVE (NEGATIVE); PH,URINE 7.5 (5.0-8.0); PROTEIN,URINE 30-70 mg/dL (NEGATIVE); SPECIFIC GRAVITIY, URINE 1.042 (1.003-1.030); UROBILINOGEN,URINE >12.0 mg/dL (<=1.0)
[2024-02-22 02:30] VITALS: BP 119/68; PULSE 90; RESP 20
[2024-02-22] MEDS ORDERED: SULF-261 PO (02:51)
[2024-02-22] MEDS: SULFAMETHOX/TRIMETH DS 800-160 MG/TABLET PO ONE (03:02)
[2024-02-22] MEDS: IBUPROFEN 600 MG TABLET PO ONE (03:02)
== END 2024-02-22 03:29 | disposition home or self-care (01) ==
LOC: EMS 00:35
DX: S30.812A Abrasion of penis, initial encounter (principal); F17.210 Nicotine dependence, cigarettes, uncomplicated; F12.90 Cannabis use, unspecified, uncomplicated; F15.10 Other stimulant abuse, uncomplicated; X58.XXXA Exposure to other specified factors, initial encounter; Y93.89 Activity, other specified; Y92.89 Other specified places as the place of occurrence of the external cause; Y99.8 Other external cause status
CPT/HCPCS: 81003; 99283

== ENCOUNTER 2024-02-23 21:58 | Inpatient (IN) | payer MEDICAID, OTHER ==
[~2024-02-23] VITALS: Ht 180.3 cm; Wt 108.5 kg
[~2024-02-23 21:58] MED LIST changes: +FLUO-418 PO; -FLUO20CA36 PO; +SULF-261 PO
[2024-02-23] MEDS ORDERED: LORazepam 2 MG TABLET PO PRN (22:45)
[2024-02-23] MEDS ORDERED: ZOLPIDEM TARTRATE 10 MG TABLET PO PRN (22:45)
[2024-02-23 23:09] VITALS: BP 126/72; PULSE 72; RESP 17; TEMP 98; O2SAT 98
[2024-02-24] MEDS ORDERED: PNEUMOCOCCAL VACCINE POLYVALENT 0.5 ML SYRINGE [PPSV23] IM. ONE (00:15)
[2024-02-24] MEDS ORDERED: PROMETHAZINE HCL 25 MG TABLET PO PRN (07:45)
[2024-02-24] MEDS ORDERED: LOPERAMIDE HCL 2 MG CAPSULE PO PRN (07:45)
[2024-02-24] MEDS ORDERED: GuaiFENesin/D-METHORPHAN [SUGAR-FREE] 200-20MG/10 ML SYRUP UDCUP PO PRN (07:45)
[2024-02-24] MEDS ORDERED: MAG HYDROX/ALUMINUM HYD/SIMETH ES 30 ML SUSPENSION UDCUP PO PRN (07:45)
[2024-02-24] MEDS ORDERED: MAGNESIUM HYDROXIDE SUSPENSION 30 ML UDCUP PO PRN (07:45)
[2024-02-24] MEDS ORDERED: HydrOXYzine PAMOATE 50 MG CAPSULE PO PRN (07:45)
[2024-02-24] MEDS ORDERED: TUBERCULIN, PURIFIED PROTEIN DERIVATIVE 5 TU/0.1 ML SYRINGE ID ONE (07:45)
[2024-02-24] MEDS ORDERED: ACETAMINOPHEN 325 MG TABLET PO PRN (07:45)
[2024-02-24 08:14] LABS: BASOPHILS % (AUTO) 0.4 % (0.0-2.0); EOSINOPHILS % (AUTO) 2.8 % (1.0-6.0); HEMATOCRIT 40.8 % (41-53); LYMPHOCYTES # (AUTO) 1.8 K/uL (1.0-4.8); LYMPHOCYTES % (AUTO) 36.3 % (22.0-44.0); MEAN CORPUSCULAR HEMOGLOBIN 29.1 pg (26.0-34.0); MEAN CORPUSCULAR HGB CONC 34.4 G/dL (31.0-37.0); MEAN CORPUSCULAR VOLUME 85 fL (80-100); MONOCYTES # (AUTO) 0.4 K/uL (0.1-1.0); NEUTROPHILS # (AUTO) 2.6 K/uL (1.8-7.7); NEUTROPHILS % (AUTO) 51.5 % (40.0-70.0); PLATELET COUNT (AUTO) 199 K/uL (150-450); RED BLOOD CELL COUNT(AUTO) 4.82 MIL/uL (4.50-5.90); RED CELL DISTRIBUTION WIDTH 13.3 % (11.5-14.5); WHITE BLOOD COUNT (AUTO) 4.9 K/uL (4.5-11.0)
[2024-02-24] MEDS: SULFAMETHOX/TRIMETH DS 800-160 MG/TABLET PO SCH (08:15)
[2024-02-24 08:16] VITALS: BP 111/60; PULSE 85; RESP 16; TEMP 98.2; O2SAT 99
[2024-02-24 08:33] LABS: ALANINE AMINOTRANSFERASE 41 U/L (12-78); ALBUMIN 2.8 g/dL (3.4-5.0); ALKALINE PHOSPHATASE 59 U/L (46-116); ANION GAP 9 mmol/L (8-16); ASPARTATE AMINOTRANSFERASE 14 U/L (15-37); BILIRUBIN,TOTAL 0.4 mg/dL (0.1-1.0); CALCIUM, TOTAL 8.7 mg/dL (8.8-10.5); CARBON DIOXIDE 25 mmol/L (22-29); CHLORIDE 106 mmol/L (98-107); CREATININE 0.97 mg/dL (0.60-1.30); GLOMERULAR FILTR. RATE CALC > 60 mL/min (>60); GLUCOSE,RANDOM 89 mg/dL (70-110); POTASSIUM 3.8 mmol/L (3.5-5.1); SODIUM SERUM 140 mmol/L (136-145); TOTAL PROTEIN, SERUM 6.4 g/dL (6.4-8.2); UREA NITROGEN, BLOOD 7 mg/dL (7-18)
[2024-02-24 08:41] LABS: HEMOGLOBIN A1C 4.9 % (3.8-5.6)
[2024-02-24 09:41] LABS: VALPROIC ACID < 3 mcg/mL (50-100)
[2024-02-24] MEDS: MULTIVITAMINS WITH MINERALS, THERAPEUTIC TABLET PO SCH (09:41)
[2024-02-24] MEDS: FOLIC ACID 1 MG TABLET PO SCH (09:41)
[2024-02-24] MEDS: NALTREXONE HCL 50 MG TABLET PO SCH (09:42)
[2024-02-24] MEDS: ARIPiprazole 15 MG TABLET PO SCH (09:42)
[2024-02-24] MEDS: BuPROPion HCL XL 150 MG ER TABLET PO SCH (09:42)
[2024-02-24] MEDS: OMEGA-3/DHA/EPA/FISH OIL 1,000 MG CAPSULE PO SCH (09:42)
[2024-02-24] MEDS: THIAMINE 100 MG TABLET PO SCH (09:42)
[2024-02-24] MEDS ORDERED: ARIPiprazole ER SUSPENSION 400 MG PRE-FILLED DUAL CHAMBER SYRINGE IM ONE (10:00)
[2024-02-24] MEDS: POTASSIUM CHLORIDE 20 MEQ ER TABLET PO ONE (16:29)
[2024-02-24 20:32] VITALS: BP 113/68; PULSE 70; TEMP 99.3; O2SAT 100
[2024-02-24] MEDS: DIVALPROEX SODIUM 500 MG ER TABLET PO SCH (21:00)
[2024-02-24] MEDS: QUEtiapine FUMARATE 100 MG TABLET PO SCH (21:36)
[2024-02-24] MEDS: MELATONIN 5 MG TABLET PO SCH (21:36)
[2024-02-25 08:05] LABS: HEMOGLOBIN A1C 4.9 % (3.8-5.6)
[2024-02-25 08:29] LABS: CHOL/HDL RATIO 4.1 (4.2-7.3); THYROID STIMULATING HORMONE 1.25 uIU/mL (0.36-3.74)
[2024-02-25 08:39] VITALS: RESP 18
[2024-02-25 08:47] LABS: FREE T4 (FREE THYROXINE) 0.99 ng/dL (0.76-1.46)
[2024-02-25] MEDS ORDERED: ARIPiprazole ER SUSPENSION 400 MG PRE-FILLED DUAL CHAMBER SYRINGE IM ONE (10:00)
[2024-02-25 20:45] VITALS: RESP 18
[2024-02-25] MEDS ORDERED: QUEtiapine FUMARATE 100 MG TABLET PO SCH (21:00)
[2024-02-26 08:37] VITALS: RESP 16
[2024-02-26 12:26] VITALS: BP 113/75; PULSE 79; RESP 16; TEMP 98.2; O2SAT 96
[2024-02-26 18:13] VITALS: BP 113/62; PULSE 82; RESP 17; TEMP 97; O2SAT 99
[2024-02-26] MEDS: QUEtiapine FUMARATE 300 MG TABLET PO SCH (20:43)
[2024-02-26] MEDS ORDERED: QUEtiapine FUMARATE 100 MG TABLET PO SCH (21:00)
[2024-02-26 21:08] VITALS: BP 113/62; PULSE 82; RESP 17; TEMP 97; O2SAT 99
[2024-02-27] MEDS: BuPROPion HCL XL 150 MG ER TABLET PO SCH (08:06)
[2024-02-27 08:59] VITALS: BP 117/71; PULSE 62; RESP 18; TEMP 97.3; O2SAT 95
[2024-02-27] MEDS ORDERED: ESZOPICLONE 3 MG TABLET PO PRN (14:15)
[2024-02-27] MEDS: QUEtiapine FUMARATE 200 MG TABLET PO SCH (21:42)
[2024-02-27 21:55] VITALS: BP 116/71; PULSE 96; RESP 16; TEMP 97.8; O2SAT 90
[2024-02-28 08:00] VITALS: BP_SYST 104; BP_SYST 124; BP_DIAS 58; BP_DIAS 72; PULSE 102; PULSE 96; RESP 18; TEMP 97.8; TEMP 97.9; O2SAT 95; O2SAT 98
[2024-02-28 09:41] VITALS: BP 104/68; PULSE 96; RESP 18; TEMP 97.9; O2SAT 98
[2024-02-28 20:22] VITALS: BP 120/69; PULSE 86; RESP 18; TEMP 97.8; O2SAT 99
[2024-02-29 09:19] LABS: ALCOHOL, URINE DRUG SCREEN NEGATIVE (NEGATIVE); AMPHET/METH SCREEN,URINE NEGATIVE (NEGATIVE); BARBITURATE SCREEN, URINE NEGATIVE (NEGATIVE); BENZODIAZEPINES SCREEN,URINE NEGATIVE (NEGATIVE); CANNABINOID SCREEN,URINE NEGATIVE (NEGATIVE); COCAINE SCREEN,URINE NEGATIVE (NEGATIVE); METHADONE SCREEN, URINE NEGATIVE (NEGATIVE); OPIATE SCREEN,URINE NEGATIVE (NEGATIVE); PHENCYCLIDINE SCREEN,URINE NEGATIVE (NEGATIVE)
[2024-02-29 09:24] LABS: APPEARANCE,URINE CLEAR (CLEAR); BILIRUBIN,URINE NEGATIVE (NEGATIVE); COLOR,URINE YELLOW (YELLOW); GLUCOSE, URINE (UA) NEGATIVE (NEGATIVE); KETONES,URINE NEGATIVE (NEGATIVE); LEUKOCYTE ESTERASE ,URINE NEGATIVE (NEGATIVE); NITRATE,URINE NEGATIVE (NEGATIVE); OCCULT BLOOD,URINE NEGATIVE (NEGATIVE); PH,URINE 6.5 (5.0-8.0); PROTEIN,URINE TRACE mg/dL (NEGATIVE); SPECIFIC GRAVITIY, URINE 1.031 (1.003-1.030); UROBILINOGEN,URINE <=1.0 mg/dL (<=1.0)
[2024-02-29 09:26] VITALS: BP 135/65; PULSE 92; RESP 16; TEMP 97.1; O2SAT 97
[2024-02-29 09:33] LABS: PH,URINE DRUG SCREEN 6.5 (5.0-8.0)
[2024-02-29] MEDS: NICOTINE 14 MG/24 HOUR PATCH TD PRN (16:20)
[2024-02-29 20:25] VITALS: BP 114/65; PULSE 96; RESP 18; TEMP 98.6; O2SAT 98
[2024-03-01 09:19] VITALS: BP 117/71; PULSE 99; RESP 17; TEMP 97.5; O2SAT 98
[2024-03-01] MEDS: GABAPENTIN 300 MG CAPSULE PO PRN (16:34)
[2024-03-01 20:26] VITALS: BP 123/79; PULSE 91; RESP 17; TEMP 98.4; O2SAT 98
[2024-03-01] MEDS: QUEtiapine FUMARATE 200 MG TABLET PO SCH (20:33)
[2024-03-02 08:40] VITALS: BP 127/61; PULSE 114; RESP 16; TEMP 97.7; O2SAT 100
[2024-03-02] MEDS ORDERED: NICOTINE POLACRILEX 2 MG LOZENGE PO PRN (13:00)
[2024-03-02] MEDS: ARIPiprazole ER SUSPENSION 400 MG PRE-FILLED DUAL CHAMBER SYRINGE IM ONE (14:21)
[2024-03-02 20:49] VITALS: BP 140/90; PULSE 95; RESP 17; TEMP 98.4; O2SAT 98
[2024-03-03 05:08] LABS: HEPATITIS A ANTIBODY IGM Negative (Negative); HEPATITIS B CORE IGM Negative (Negative); HEPATITIS C AB (EIA) Non Reactive (Non Reactive)
[2024-03-03] MEDS ORDERED: QUET200T PO (08:24)
[2024-03-03] MEDS ORDERED: BUPR-50 PO (08:25)
[2024-03-03] MEDS ORDERED: OMEG-135 PO (08:25)
[2024-03-03] MEDS ORDERED: FOLI-130 PO (08:26)
[2024-03-03] MEDS ORDERED: MULT-14 PO (08:27)
[2024-03-03] MEDS ORDERED: THIA100T80 PO (08:27)
[2024-03-03 08:39] VITALS: BP 122/66; PULSE 84; RESP 18; TEMP 97.8; O2SAT 97
[2024-03-30] MEDS ORDERED: ARIPiprazole ER SUSPENSION 400 MG PRE-FILLED DUAL CHAMBER SYRINGE IM SCH (09:00)
== END 2024-03-03 10:23 | disposition home or self-care (01) | DRG 750 ==
LOC: B3A 22:43
PROVIDERS: ADMIT Psychiatry & Neurology Psychiatry; ATTEND Psychiatry & Neurology Psychiatry
PROC: GZHZZZZ Group Psychotherapy (ICD-10-PCS; principal; 2024-02-24)
PROC: GZ56ZZZ Individual Psychotherapy, Supportive (ICD-10-PCS; 2024-02-24)
DX: F20.0 Paranoid schizophrenia (principal); G93.41 Metabolic encephalopathy; F17.200 Nicotine dependence, unspecified, uncomplicated; J44.9 Chronic obstructive pulmonary disease, unspecified; F19.10 Other psychoactive substance abuse, uncomplicated; F17.210 Nicotine dependence, cigarettes, uncomplicated; E78.5 Hyperlipidemia, unspecified; F15.90 Other stimulant use, unspecified, uncomplicated; E87.6 Hypokalemia; F90.9 Attention-deficit hyperactivity disorder, unspecified type; F31.9 Bipolar disorder, unspecified; Z55.9 Problems related to education and literacy, unspecified; Z65.3 Problems related to other legal circumstances; Z59.9 Problem related to housing and economic circumstances, unspecified; Z91.148 Patient's other noncompliance with medication regimen for other reason
CPT/HCPCS: 80053; 80061; 80074; 80156; 80164; 80307; 81003; 83036; 84439; 84443; 85025; 86592; J0401; Q9967

== ENCOUNTER 2024-06-30 10:23 | Inpatient (IN) | payer MEDICAID, OTHER ==
[~2024-06-30] VITALS: Ht 180.3 cm; Wt 100.0 kg
[~2024-06-30 10:23] MED LIST changes: +BUPR-514 PO; -FLUO-418 PO; +FOLI-130 PO; +MULT-14 PO; -NICO-703 TD; +OMEG-135 PO; +QUET200T PO; -RISP3TAB35 PO; -SULF-261 PO; +THIA100T80 PO
[2024-06-30 10:27] VITALS: O2SAT 98
[2024-06-30] MEDS ORDERED: ZOLPIDEM TARTRATE 10 MG TABLET PO PRN (11:00)
[2024-06-30 13:13] LABS: BASOPHILS % (AUTO) 0.4 % (0.0-2.0); EOSINOPHILS % (AUTO) 1.1 % (1.0-6.0); HEMATOCRIT 43.1 % (41-53); HEMOGLOBIN 14.8 g/dL (13.5-17.5); LYMPHOCYTES # (AUTO) 1.2 K/uL (1.0-4.8); LYMPHOCYTES % (AUTO) 17.6 % (22.0-44.0); MEAN CORPUSCULAR HEMOGLOBIN 28.3 pg (26.0-34.0); MEAN CORPUSCULAR HGB CONC 34.2 G/dL (31.0-37.0); MEAN CORPUSCULAR VOLUME 83 fL (80-100); MONOCYTES # (AUTO) 0.9 K/uL (0.1-1.0); MONOCYTES % (AUTO) 12.8 % (2.0-9.0); NEUTROPHILS # (AUTO) 4.6 K/uL (1.8-7.7); NEUTROPHILS % (AUTO) 68.1 % (40.0-70.0); PLATELET COUNT (AUTO) 239 K/uL (150-450); RED BLOOD CELL COUNT(AUTO) 5.21 MIL/uL (4.50-5.90); WHITE BLOOD COUNT (AUTO) 6.8 K/uL (4.5-11.0)
[2024-06-30 13:19] LABS: ANION GAP 10 mmol/L (8-16); CALCIUM, TOTAL 8.6 mg/dL (8.8-10.5); CARBON DIOXIDE 27 mmol/L (22-29); CHLORIDE 98 mmol/L (98-107); CREATININE 0.96 mg/dL (0.60-1.30); GLOMERULAR FILTR. RATE CALC > 60 mL/min (>60); GLUCOSE,RANDOM 149 mg/dL (70-110); POTASSIUM 3.4 mmol/L (3.5-5.1); SODIUM SERUM 135 mmol/L (136-145); UREA NITROGEN, BLOOD 8 mg/dL (7-18)
[2024-06-30 13:33] LABS: ALCOHOL, BLOOD (SERUM) < 3 mg/dL (0-10)
[2024-06-30] MEDS: POTASSIUM CHLORIDE 20 MEQ ER TABLET PO ONE (13:51)
[2024-06-30 14:22] LABS: COVID AG,FIA SOURCE NASAL SWAB
[2024-06-30 14:41] LABS: SARS-COV2 (COVID) ANTIGEN,FIA Negative (Negative)
[2024-06-30 18:49] VITALS: BP 132/68; PULSE 83; RESP 18; TEMP 97; O2SAT 100
[2024-06-30] MEDS: LORazepam 2 MG TABLET PO PRN (18:51)
[2024-06-30] MEDS: HALOPERIDOL 5 MG TABLET PO PRN (18:52)
[2024-06-30] MEDS: INFLUENZA VIRUS VACCINE TVS (6MO+) 2024-25/PF 45 MCG/0.5 ML SYRINGE IM. ONE (19:15)
[2024-06-30 20:05] VITALS: BP 129/62; PULSE 85; RESP 18; TEMP 97.2; O2SAT 98
[2024-07-01 08:24] VITALS: BP 120/69; PULSE 88; RESP 18; TEMP 97.3; O2SAT 98
[2024-07-01] MEDS ORDERED: ONDANSETRON 4 MG TABLET PO PRN (16:30)
[2024-07-01] MEDS ORDERED: CloNIDine HCL 0.1 MG TABLET PO PRN (16:30)
[2024-07-01] MEDS ORDERED: IBUPROFEN 600 MG TABLET PO PRN (16:30)
[2024-07-01] MEDS ORDERED: MAGNESIUM HYDROXIDE SUSPENSION 30 ML UDCUP PO PRN (16:30)
[2024-07-01] MEDS ORDERED: PETROLATUM,WHITE 28 GM JELLY TP PRN (16:30)
[2024-07-01] MEDS ORDERED: BENZOCAINE/MENTHOL LOZENGE PO PRN (16:30)
[2024-07-01] MEDS ORDERED: LOPERAMIDE HCL 2 MG CAPSULE PO PRN (16:30)
[2024-07-01] MEDS ORDERED: ALBUTEROL SULFATE HFA 90 MCG/PUFF 8 GM INHALER IH PRN (16:30)
[2024-07-01] MEDS ORDERED: DOCUSATE SODIUM 100 MG CAPSULE PO PRN (16:30)
[2024-07-01] MEDS ORDERED: MAG HYDROX/ALUMINUM HYD/SIMETH ES 30 ML SUSPENSION UDCUP PO PRN (16:30)
[2024-07-01] MEDS ORDERED: OMEPRAZOLE 20 MG CAPSULE PO PRN (16:30)
[2024-07-01] MEDS ORDERED: BACITRACIN 28 GM OINTMENT TP PRN (16:30)
[2024-07-01] MEDS ORDERED: ACETAMINOPHEN 325 MG TABLET PO PRN (16:30)
[2024-07-01] MEDS: POTASSIUM CHLORIDE 20 MEQ ER TABLET PO ONE (16:44)
[2024-07-01 21:27] VITALS: BP 109/57; PULSE 86; RESP 17; TEMP 97.8
[2024-07-02 08:43] VITALS: BP 92/52; PULSE 67; RESP 17; TEMP 96.7; O2SAT 97
[2024-07-02 17:41] VITALS: BP 108/65; RESP 17; O2SAT 98
[2024-07-02 20:00] VITALS: BP 108/65; PULSE 92; RESP 17; TEMP 96.6; O2SAT 97
[2024-07-02] MEDS: DIVALPROEX SODIUM 500 MG DR TABLET PO SCH (20:25)
[2024-07-02] MEDS: QUEtiapine FUMARATE 200 MG TABLET PO SCH (20:26)
[2024-07-03 08:24] VITALS: BP 150/88; PULSE 77; RESP 17; TEMP 98; O2SAT 99
[2024-07-05 08:16] VITALS: BP 118/88; PULSE 96; RESP 18; TEMP 96.4; O2SAT 97
[2024-07-05 09:07] LABS: ANION GAP 5 mmol/L (8-16); CALCIUM, TOTAL 9.4 mg/dL (8.8-10.5); CARBON DIOXIDE 28 mmol/L (22-29); CHLORIDE 103 mmol/L (98-107); CREATININE 0.94 mg/dL (0.60-1.30); GLOMERULAR FILTR. RATE CALC > 60 mL/min (>60); GLUCOSE,RANDOM 94 mg/dL (70-110); POTASSIUM 4.3 mmol/L (3.5-5.1); SODIUM SERUM 136 mmol/L (136-145); UREA NITROGEN, BLOOD 18 mg/dL (7-18)
[2024-07-05] MEDS ORDERED: DiphenhydrAMINE HCL 50 MG/ML VIAL ONE (14:07)
[2024-07-05] MEDS ORDERED: HALOPERIDOL LACTATE 5 MG/ML VIAL ONE (14:07)
[2024-07-05] MEDS ORDERED: LORazepam 2 MG/ML VIAL ONE (14:07)
[2024-07-05] MEDS: NICOTINE POLACRILEX 2 MG LOZENGE PO PRN (14:31)
[2024-07-05] MEDS: LORazepam 2 MG/ML VIAL IM ONE (14:48)
[2024-07-05] MEDS: DiphenhydrAMINE HCL 50 MG/ML VIAL IM ONE (14:48)
[2024-07-05] MEDS: HALOPERIDOL LACTATE 5 MG/ML VIAL IM ONE (14:51)
[2024-07-05 20:18] VITALS: BP 127/88; PULSE 97; RESP 18; TEMP 97.9; O2SAT 98
[2024-07-06 08:22] VITALS: BP 120/80; PULSE 88; RESP 18; TEMP 98.1; O2SAT 98
== END 2024-07-06 18:35 | disposition home or self-care (01) | DRG 750 ==
LOC: EMS 10:23 → B2S 17:04
PROVIDERS: ADMIT Psychiatry & Neurology Psychiatry; ATTEND Psychiatry & Neurology Psychiatry
DX: F20.9 Schizophrenia, unspecified (principal); E66.9 Obesity, unspecified; G47.00 Insomnia, unspecified; F41.9 Anxiety disorder, unspecified; K21.9 Gastro-esophageal reflux disease without esophagitis; F90.9 Attention-deficit hyperactivity disorder, unspecified type; Z20.822 Contact with and (suspected) exposure to COVID-19; K59.00 Constipation, unspecified; F19.10 Other psychoactive substance abuse, uncomplicated; Z72.0 Tobacco use; Z68.30 Body mass index [BMI] 30.0-30.9, adult
CPT/HCPCS: 80048; 85025; 87081; 99285; G0480; J1200; J1630; J2060

== ENCOUNTER 2024-08-31 09:25 | Emergency (ER) | payer MEDICAID, OTHER ==
[~2024-08-31] VITALS: Ht 182.9 cm; Wt 102.3 kg
[~2024-08-31 09:25] MED LIST changes: -BUPR-514 PO; -FOLI-130 PO; -MELA5TAB40 PO; -MULT-14 PO; -NALT50TA33 PO; -OMEG-135 PO; -THIA100T80 PO
[2024-08-31 09:32] VITALS: TEMP 97
[2024-08-31] MEDS: SULFAMETHOX/TRIMETH DS 800-160 MG/TABLET PO ONE (10:02)
[2024-08-31] MEDS ORDERED: SULF-261 PO (10:02)
[2024-08-31 10:29] VITALS: BP 138/83; PULSE 78; RESP 18; O2SAT 100
== END 2024-08-31 10:30 | disposition home or self-care (01) ==
LOC: EMS 09:32
DX: L03.311 Cellulitis of abdominal wall (principal); F12.90 Cannabis use, unspecified, uncomplicated; F17.210 Nicotine dependence, cigarettes, uncomplicated
CPT/HCPCS: 99284; Z7502; Z7610